=== PATIENT | female | born 1960 | race Two or more races ===

== ENCOUNTER 2024-08-08 05:40 | Day surgery (SDC) | payer OTHER ==
[2024-08-06 10:45] VITALS: BP 169/83
[~2024-08-08] VITALS: Ht 160 cm; Wt 59.9 kg
[~2024-08-08 05:40] MED LIST: CALCIUM500 M2 PO; CRESTOR40 MG PO; IBANDRONATE SO150 MG PO; IRBESARTAN150 MG PO; MAGNESIUM400 MG PO; METFORMIN HCL750 MG PO
[2024-08-08] MEDS ORDERED: GENTAMICIN SULFATE 40 MG/ML VIAL ONE (10:47)
[2024-08-08] MEDS ORDERED: CEFAZOLIN SODIUM 1,000 MG VIAL ONE (10:47)
[2024-08-08] MEDS ORDERED: POVIDONE-IODINE SCRUB 118 ML BOTT TOP ONE (10:47)
[2024-08-08] MEDS ORDERED: POVIDONE-IODINE 118 ML BOTT TOP ONE (10:47)
[2024-08-08] MEDS ORDERED: EPINEPHRINE HCL/PF 1 MG/ML AMPUL ONE (10:47)
[2024-08-08] MEDS ORDERED: MORPHINE SULFATE 4 MG/ML VIAL IV PRN (11:45)
[2024-08-08] MEDS ORDERED: ONDANSETRON HCL 2 MG/ML VIAL IV PRN (11:45)
[2024-08-08] MEDS ORDERED: NITROGLYCERIN 1 INCH OINT..GM. TD ONE (12:14)
[2024-08-08] MEDS ORDERED: GENTAMICIN SULFATE 80 MG in 0.9 % SODIUM CHLORIDE 100 ML IV ONE (12:15)
[2024-08-08] MEDS ORDERED: EPINEPHRINE HCL/PF 1 MG/ML AMPUL IV PUSH ONE (12:15)
[2024-08-08] MEDS ORDERED: POVIDONE-IODINE 118 ML BOTT TP ONE (12:15)
[2024-08-08] MEDS ORDERED: POVIDONE-IODINE SCRUB 118 ML BOTT TP ONE (12:15)
[2024-08-08] MEDS ORDERED: CEFAZOLIN SODIUM 1,000 MG in 0.9 % SODIUM CHLORIDE 50 ML IV ONE (12:15)
[2024-08-08] MEDS ORDERED: CLINDAMYCIN PHOSPHATE 900 MG in 0.9 % SODIUM CHLORIDE 100 ML IV ONE (12:15)
[2024-08-08] MEDS ORDERED: MORPHINE SULFATE 4 MG/ML VIAL IV ONE (14:00)
[2024-08-08] MEDS ORDERED: MORPHINE SULFATE 2 MG/ML CARTRIDGE IV ONE (14:30)
== END 2024-08-08 15:50 | disposition home or self-care (01) ==
LOC: CIR.AMB 05:40
PROVIDERS: ATTEND Plastic Surgery
DX: N62 Hypertrophy of breast (principal); N64.89 Other specified disorders of breast